=== PATIENT | male | born 1970 | race Caucasian/White ===

== ENCOUNTER 2020-07-03 14:51 | Emergency (ER) | payer OTHER ==
[2020-07-03 15:14] VITALS: RESP 18; TEMP 98
[2020-07-03] MEDS ORDERED: SODIUM CHLORIDE 0.9% 1,000 ML IV STA (15:50)
--- NOTE | 2020-07-03 15:50 | ED ---
Nausea/Vomiting/Diarrhea HPI - General Chief complaint: Nausea/Vomiting/Diarrhea Stated complaint: ABD pain Time Seen by Provider: 07/03/20 15:48 Source: patient Mode of arrival: ambulatory Limitations: no limitations - History of Present Illness Initial comments: Patient is a 49 year old male past history of Crohn's and ulcerative colitis status post colectomy, colostomy and PEG tube placement present to emergency room with reported abdominal pain. Patient is concerned that his PEG tube is displaced. He noticed this yesterday States it was last changed approximately 2 months ago however the site has been present for 10 years. Reports that he has had difficulty tolerating his tube feeds. Patient is also able to normally take food by mouth however states he gets in these episodes he has nausea, vomiting. Reports that his ostomy output is different. Denies any melanic stools or hematochezia. Does admit to abdominal pain at the site of the PEG tube. Patient reports that he hasn't tolerated food by mouth in approximately 3 weeks however this is not uncommon for him to go so long and he has an episode like this. He did notify his GI doctor who is out of [place] however does not have an appointment for approximately 2 weeks. Denies fevers or chills. No sick contacts as her symptoms. No other alleviating, precipitating or modifying factors - Related Data Home Medications Medication Instructions Recorded Confirmed Amitriptyline HCl [Elavil] 100 mg PO HS 07/03/20 07/03/20 Buprenorphine HCl [Belbuca] 750 mcg BC BID 07/03/20 07/03/20 Gabapentin [Neurontin] 900 mg PO TID 07/03/20 07/03/20 Omeprazole [PriLOSEC] 20 mg PO AC-BID 07/03/20 07/03/20 Ondansetron Odt [Zofran Odt] 4 mg PO Q8HR PRN 07/03/20 07/03/20 Prochlorperazine [Compazine] 10 mg PO TID PRN 07/03/20 07/03/20 Promethazine HCl 12.5 mg PO QID PRN 07/03/20 07/03/20 oxyCODONE-APAP 10-325MG [Percocet 1 tab PO Q4H PRN MDD 5/DAY 07/03/20 07/03/20 10-325 mg] Previous Rx's Medication Instructions Recorded Promethazine [Phenergan] 12.5 mg PO Q6HR #12 tablet 07/03/20 Allergies Allergy/AdvReac Type Severity Reaction Status Date / Time amoxicillin Allergy Rash/Hives Verified 07/03/20 17:27 morphine Allergy Nausea & Verified 07/03/20 17:27 Vomiting Penicillins Allergy Rash/Hives Verified 07/03/20 17:27 Review of Systems ROS Statement: Those systems with pertinent positive or pertinent negative responses have been documented in the HPI. ROS Other: All systems not noted in ROS Statement are negative. Past Medical History Past Medical History: Pulmonary Embolus (PE) Additional Past Medical History / Comment(s): Crohns. History of Any Multi-Drug Resistant Organisms: C-DIFF, MRSA Date of last positivie culture/infection: 2017 MDRO Source:: intestine Additional Past Surgical History / Comment(s): colostomy, PEG tube, Past Psychological History: No Psychological Hx Reported Smoking Status: Never smoker Past Alcohol Use History: None Reported Past Drug Use History: None Reported General Exam Limitations: no limitations Course Vital Signs 07/03/20 07/03/20 07/03/20 15:07 16:42 17:00 Temperature 98.0 F Pulse Rate 91 88 82 Respiratory 18 18 18 Rate Blood Pressure 118/74 113/78 105/60 O2 Sat by Pulse 97 92 L 92 L Oximetry 07/03/20 07/03/20 18:00 19:20 Temperature 98.0 F Pulse Rate 79 84 Respiratory 18 18 Rate Blood Pressure 106/74 112/85 O2 Sat by Pulse 91 L 96 Oximetry Medical Decision Making - Medical Decision Making Upon arrival patient is placed into room 8. A thorough history and physical exam was performed. PIV is established. Laboratory studies were conducted. CT of the patient's abdomen and pelvis was performed. Laboratory studies are reviewed and CT of the patient's abdomen and pelvis demonstrates G-tube in good position. Discuss results of the patient's. He is reevaluated after pain and nausea medications and reports improvement in his symptoms. I did discuss diagnosis, differential treatment options. I recommended hospital admission for fluid hydration, pain control, antiemetics and surgery consult. Patient refused stating that he would rather follow up with his own surgeon. Patient is to follow-up within 2-4 days. Return to the emergency room for any new or worsening symptoms per patient was discharged in stable condition - Lab Data Result diagrams: 07/03/20 16:47 07/03/20 16:47 Lab Results 07/03/20 07/03/20 07/03/20 Range/Units 16:47 16:47 16:47 WBC 12.3 H (3.8-10.6) k/uL RBC 4.43 (4.30-5.90) m/uL Hgb 14.9 (13.0-17.5) gm/dL Hct 42.5 (39.0-53.0) % MCV 95.9 (80.0-100.0) fL MCH 33.6 (25.0-35.0) pg MCHC 35.0 (31.0-37.0) g/dL RDW 12.5 (11.5-15.5) % Plt Count 271 (150-450) k/uL MPV 7.7 Neutrophils % 87 % Lymphocytes % 10 % Monocytes % 2 % Eosinophils % 0 % Basophils % 0 % Neutrophils # 10.7 H (1.3-7.7) k/uL Lymphocytes # 1.3 (1.0-4.8) k/uL Monocytes # 0.2 (0-1.0) k/uL Eosinophils # 0.0 (0-0.7) k/uL Basophils # 0.0 (0-0.2) k/uL Sodium 139 (137-145) mmol/L Potassium 4.6 (3.5-5.1) mmol/L Chloride 107 (98-107) mmol/L Carbon Dioxide 21 L (22-30) mmol/L Anion Gap 11 mmol/L BUN 13 (9-20) mg/dL Creatinine 0.80 (0.66-1.25) mg/dL Est GFR (CKD-EPI)AfAm >90 (>60 ml/min/1.73 sqM) Est GFR (CKD-EPI)NonAf >90 (>60 ml/min/1.73 sqM) Glucose 104 H (74-99) mg/dL Plasma Lactic Acid Juan (0.7-2.0) mmol/L Calcium 10.1 (8.4-10.2) mg/dL Total Bilirubin 0.8 (0.2-1.3) mg/dL AST 44 (17-59) U/L ALT 45 (4-49) U/L Alkaline Phosphatase 66 (38-126) U/L Total Protein 8.7 H (6.3-8.2) g/dL Albumin 4.9 (3.5-5.0) g/dL Lipase 39 (23-300) U/L Urine Color Yellow Urine Appearance Clear (Clear) Urine pH 5.5 (5.0-8.0) Ur Specific Bradley 1.035 (1.001-1.035) Urine Protein Trace H (Negative) Urine Glucose (UA) Negative (Negative) Urine Ketones Negative (Negative) Urine Blood Negative (Negative) Urine Nitrite Negative (Negative) Urine Bilirubin Negative (Negative) Urine Urobilinogen <2.0 (<2.0) mg/dL Ur Leukocyte Esterase Negative (Negative) 07/03/20 Range/Units 16:47 WBC (3.8-10.6) k/uL RBC (4.30-5.90) m/uL Hgb (13.0-17.5) gm/dL Hct (39.0-53.0) % MCV (80.0-100.0) fL MCH (25.0-35.0) pg MCHC (31.0-37.0) g/dL RDW (11.5-15.5) % Plt Count (150-450) k/uL MPV Neutrophils % % Lymphocytes % % Monocytes % % Eosinophils % % Basophils % % Neutrophils # (1.3-7.7) k/uL Lymphocytes # (1.0-4.8) k/uL Monocytes # (0-1.0) k/uL Eosinophils # (0-0.7) k/uL Basophils # (0-0.2) k/uL Sodium (137-145) mmol/L Potassium (3.5-5.1) mmol/L Chloride (98-107) mmol/L Carbon Dioxide (22-30) mmol/L Anion Gap mmol/L BUN (9-20) mg/dL Creatinine (0.66-1.25) mg/dL Est GFR (CKD-EPI)AfAm (>60 ml/min/1.73 sqM) Est GFR (CKD-EPI)NonAf (>60 ml/min/1.73 sqM) Glucose (74-99) mg/dL Plasma Lactic Acid Juan 2.0 (0.7-2.0) mmol/L Calcium (8.4-10.2) mg/dL Total Bilirubin (0.2-1.3) mg/dL AST (17-59) U/L ALT (4-49) U/L Alkaline Phosphatase (38-126) U/L Total Protein (6.3-8.2) g/dL Albumin (3.5-5.0) g/dL Lipase (23-300) U/L Urine Color Urine Appearance (Clear) Urine pH (5.0-8.0) Ur Specific Bradley (1.001-1.035) Urine Protein (Negative) Urine Glucose (UA) (Negative) Urine Ketones (Negative) Urine Blood (Negative) Urine Nitrite (Negative) Urine Bilirubin (Negative) Urine Urobilinogen (<2.0) mg/dL Ur Leukocyte Esterase (Negative) Disposition Clinical Impression: Abdominal pain, Nausea & vomiting, Gastrointestinal tube present Disposition: HOME SELF-CARE Condition: Stable Instructions (If sedation given, give patient instructions): Acute Nausea and Vomiting (ED) Additional Instructions: Please follow-up with your primary care doctor and surgeon. Return to the emergency room for any new or worsening symptoms Prescriptions: Promethazine [Phenergan] 12.5 mg PO Q6HR #12 tablet Is patient prescribed a controlled substance at d/c from ED?: No Referrals: Nonstaff,Physician [Primary Care Provider] - 1-2 days Time of Disposition: 18:57
[2020-07-03] MEDS ORDERED: PROCHLORPERAZINE INJ 10 MG/2 ML VIAL IVP STA (16:09)
[2020-07-03] MEDS ORDERED: HYDROmorphone 1 MG/ML 1 ML SYRINGE IVP STA (16:09)
[2020-07-03 17:12] LABS: Basophils % (A) 0 %; Eosinophils % (A) 0 %; HCT 42.5 % (39.0-53.0); HGB 14.9 gm/dL (13.0-17.5); Lymphocytes # (A) 1.3 k/uL (1.0-4.8); Lymphocytes % (A) 10 %; MCH 33.6 pg (25.0-35.0); MCV 95.9 fL (80.0-100.0); Mean Platelet Volume 7.7; Monocytes # (A) 0.2 k/uL (0-1.0); Monocytes % (A) 2 %; Neutrophils # (A) 10.7 k/uL (1.3-7.7); Neutrophils % (A) 87 %; Platelet Count 271 k/uL (150-450); RBC 4.43 m/uL (4.30-5.90); RDW 12.5 % (11.5-15.5); WBC 12.3 k/uL (3.8-10.6)
[2020-07-03 17:20] LABS: ALT 45 U/L (4-49); AST 44 U/L (17-59); African American GFR (CKD) >90 (>60 ml/min/1.73 sqM); Albumin 4.9 g/dL (3.5-5.0); Alkaline Phosphatase 66 U/L (38-126); Anion Gap 11 mmol/L; Blood Urea Nitrogen 13 mg/dL (9-20); Calcium 10.1 mg/dL (8.4-10.2); Carbon Dioxide 21 mmol/L (22-30); Chloride 107 mmol/L (98-107); Glucose 104 mg/dL (74-99); Lipase 39 U/L (23-300); Non-African American GFR(CKD) >90 (>60 ml/min/1.73 sqM); Potassium 4.6 mmol/L (3.5-5.1); Sodium 139 mmol/L (137-145); Total Bilirubin 0.8 mg/dL (0.2-1.3); Total Protein 8.7 g/dL (6.3-8.2)
[2020-07-03 17:22] LABS: Appearance,Urine Clear (Clear); Bilirubin,Urine Negative (Negative); Blood,Urine Negative (Negative); Color,Urine Yellow; Glucose,Urine (UA) Negative (Negative); Ketones,Urine Negative (Negative); Leukocyte Esterase,Urine Negative (Negative); Nitrite,Urine Negative (Negative); PH, Urine 5.5 (5.0-8.0); Protein,Urine Trace (Negative); Specific Gravity,Urine 1.035 (1.001-1.035); Urobilinogen,Urine <2.0 mg/dL (<2.0)
--- NOTE | 2020-07-03 17:46 | CT ---
EXAMINATION TYPE: CT abdomen pelvis w con DATE OF EXAM: 07/03/2020 COMPARISON: None HISTORY: Feeding tube dislodged yesterday. Abdominal pain. History of crohns, colectomy and small bow el resections. CT DLP: 1212.6 mGycm Automated exposure control for dose reduction was used. CONTRAST: Performed with IV Contrast, patient injected with 100 mL of Isovue 370. Images obtained from the diaphragm to the floor the pelvis with intravenous contrast. Lung bases are clear of consolidation. There is no pleural effusion. Heart size is normal. Liver spleen stomach appear intact. There is gastrostomy tube noted in the anterior stomach. Tubing a ppears in good position in the anterior stomach. The tip of the catheter is in the proximal jejunum. Gallbladder appears normal. The bile ducts are not dilated. There is no pancreatic mass. There is no adrenal mass. Kidneys show satisfactory contrast opacification. There is no hydronephrosi s. Ureters are not dilated. There is no retroperitoneal adenopathy. Bladder distends smoothly. There is no free fluid in the pelvis. There is no mesenteric edema. There is no ascites or free air. There is no sign of a bowel obstructio n. There is apparent total colectomy. There is ileostomy in the left mid abdomen. The lumbar vertebra have normal alignment. Posterior elements are intact. There is no compression fra cture. Bony pelvis is intact. Sacroiliac joints are intact. IMPRESSION: Gastrostomy tube in good position with tubing extending into the proximal jejunum. Previous surgery. No sign of acute abdomen and pelvis.
[2020-07-03 19:22] VITALS: BP 112/85; PULSE 84
== END 2020-07-03 19:22 | disposition home or self-care (01) ==
LOC: EC 14:51
DX: R10.9 Unspecified abdominal pain (principal); R11.2 Nausea with vomiting, unspecified; Z88.0 Allergy status to penicillin; Z88.5 Allergy status to narcotic agent; Z93.1 Gastrostomy status; Z86.14 Personal history of Methicillin resistant Staphylococcus aureus infection; Z87.19 Personal history of other diseases of the digestive system
CPT/HCPCS: 36415; 80053; 83605; 83690; 85025; 81003; 74177; 99284; 96374; 96375; 96361 ×3; J0780; J1170; Q9967